=== PATIENT | male | born 1965 | race Caucasian/White ===

== ENCOUNTER → 2016-09-29 | Outpatient (CLI) | payer OTHER ==
[~2016-09-29] MED LIST: ACET500C OR; ALLO100T OR; ASPI81TA83 OR; Aspirin PO; BUDE150T OR; CART120C PO; CART180C PO; COLC1TAB5 PO; COLCPOW6 PO; GABA300C3 PO; GABA600T PO; GLIM2TA PO; GLUC1000 OR; HUMALOG SC; IBUP800T OR; INDO50CA2 OR; Keflex PO; LIPI80TA PO; LISI-538 PO; LISIPOW PO; METF1000 PO; METO-207 PO; NICO14DI3 TD; NORV5TAB OR; ROBA750T4 PO; TOPR25TA PO; VICO5TAB OR; WELL100T PO; XARE20TA PO; ZOCO40TA OR
[2016-09-29 14:37] LABS: BASO # 0.1 K/mm3 (0.0-0.2); BASO % 0.7 % (0.0-1.0); EOS # 0.3 K/mm3 (0.0-0.50); EOS % 3.1 % (0.0-3.0); LYMPH # 2.3 K/mm3 (1.5-4.5); LYMPH % 26.1 % (24.0-44.0); MEAN CORPUSCULAR HEMOGLOBIN 31.1 pg (27.0-33.0); MEAN CORPUSCULAR HGB CONC 33.1 g/dl (32.0-36.5); MONO # 0.4 K/mm3 (0.0-0.8); MONO % 4.9 % (0.0-5.0); NEUTROPHILS # 5.5 K/mm3 (1.8-7.7); NEUTROPHILS % 64.1 % (36.0-66.0); RED CELL DISTRIBUTION WIDTH 12.6 % (11.5-14.5); WHITE BLOOD COUNT 8.5 K/mm3 (4.0-10.0)
[2016-09-29 14:44] LABS: INR 1.13
[2016-09-29 14:57] LABS: ANION GAP 10 MEQ/L (8-16); BLOOD UREA NITROGEN 23 MG/DL (7-18); CALCIUM LEVEL 8.9 MG/DL (8.5-10.1); CARBON DIOXIDE LEVEL 26 MEQ/L (21-32); CHLORIDE LEVEL 107 MEQ/L (98-107); CREATININE FOR GFR 0.91 MG/DL (0.70-1.30); GLOMERULAR FILTRATION RATE > 60.0 (>60); GLUCOSE, FASTING 306 MG/DL (70-105); POTASSIUM SERUM 4.1 MEQ/L (3.5-5.1); SODIUM LEVEL 143 MEQ/L (136-145)
== END ==
LOC: M LAB 13:54
PROVIDERS: ATTEND Nurse Practitioner
DX: I63.232 Cerebral infarction due to unspecified occlusion or stenosis of left carotid arteries (principal)

== ENCOUNTER 2016-10-03 10:00 | Outpatient (RCR) | payer OTHER ==
[2016-10-06] MEDS ORDERED: PANT40TA2 PO (09:27)
[2016-10-06] MEDS ORDERED: ASPI325T PO (09:27)
[2016-10-06] MEDS ORDERED: FLOM5CAP PO (09:27)
[2016-10-06] MEDS ORDERED: FURO40TA2 (09:27)
[2016-10-06] MEDS ORDERED: CLOP75TA2 PO (09:27)
== END 2016-10-11 ==
LOC: M OT 10:00
DX: Z51.89 Encounter for other specified aftercare (principal); I63.9 Cerebral infarction, unspecified

== ENCOUNTER → 2016-10-06 | Emergency (ER) | payer OTHER ==
[~2016-10-06] VITALS: Ht 188 cm; Wt 165.6 kg
[~2016-10-06] MED LIST changes: +ASPI325T PO; +CLOP75TA2 PO; +EPINEPHrine 1MG/10ML SYRINGE 1.5IN ONE; +FLOM5CAP PO; +FURO40TA2; +GABA-282 PO; -GABA300C3 PO; +NALOXONE INJ 0.4 MG/1 ML VIAL (J2310) ONE; +PANT40TA2 PO; +SODIUM BICARBONATE 8.4% INJ 50 ML SYRINGE ONE
== END | disposition expired ==
LOC: M ED 09:55
DX: I46.9 Cardiac arrest, cause unspecified (principal)
CPT/HCPCS: 31500; 92950; 99285; J2310

== ENCOUNTER → 2016-10-07 | Outpatient (REF) ==
[~2016-10-07] MED LIST changes: -EPINEPHrine 1MG/10ML SYRINGE 1.5IN ONE; -GABA-282 PO; +GABA300C3 PO; -NALOXONE INJ 0.4 MG/1 ML VIAL (J2310) ONE; -SODIUM BICARBONATE 8.4% INJ 50 ML SYRINGE ONE
== END ==
LOC: M LAB 08:00